=== PATIENT | male | born 1970 | race Caucasian/White ===

== ENCOUNTER 2023-05-23 12:36 | Day surgery (SDC) | payer BC ==
[~2023-05-23] VITALS: Ht 175.3 cm; Wt 79.5 kg
[~2023-05-23 12:36] MED LIST: COQ-10100 MG PO; FAMOTIDINE10 MG PO; FISH OIL 1,0001 EAC6 PO; HYDROCHLOROTHIA25 MG PO; LOSARTAN POTASS25 MG PO; MAGNESIUM100 MG PO; OMEPRAZOLE20 MG PO; ONE-DAILY MULT1 EAC1 PO; ROSUVASTATIN CA20 MG PO; VAZALORE81 MG PO
[2023-05-23 12:52] VITALS: BP 155/81
--- NOTE | 2023-05-23 15:29 | NUR ---
05/23/23 1529 Sheets,Mechelle 1518 PT ARRIVED TO PACU ON 2L VIA NC, PT WAKES EASILY AND PLAN OF CARE DISCUSSED. PT EASILY FALLS BACK SLEEP AND RESP EVEN AND UNLABORED. C02 35.
[2023-05-23 15:53] VITALS: BP 115/80
--- NOTE | 2023-05-26 11:30 | OR ---
[facility] [place] [facility] [address] [place], [place] [address] Signed DATE OF OPERATION: 05/23/2023 SURGEON: Leighann Baptiste MD PREOPERATIVE DIAGNOSES: 1. Clinical gastroesophageal reflux history. 2. Colon screening. POSTOPERATIVE DIAGNOSES: 1. Normal-appearing upper endoscopy. 2. Sigmoid diverticulosis and polyps x3. PROCEDURES: 1. Esophagogastroduodenoscopy with biopsy. 2. Total colonoscopy to cecum with cold snare polypectomy x1, cold morcellation polypectomy x1, and hot snare polypectomy x1. ANESTHESIA: Intravenous sedation, fentanyl 150 mcg and Versed 9 mg (total). 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 He is a patient of Dr. Kenyon Stevenson. He has long-standing gastroesophageal reflux symptoms and underwent evaluation by Ear, Nose, and Throat surgeon, Dr. Cristina, where he was considered to have possible reflux related issues. He has had an upper GI and CT scan in the distant past. He notes that he has a "click" when he swallows in the region of the hypopharynx, this has been rather mysterious. He has taken omeprazole with good benefit regarding his reflux symptoms. He notes off his medications. He has prompt reflux recurrence. He has no family history of esophageal cancer. He is admitted at this time to undergo upper endoscopy on that basis. Additionally, he is here for screening colonoscopy, having never undergone colonoscopy in the past. He does have family history of colon cancer in a paternal grandfather. He has no symptoms of bleeding, diarrhea, or constipation. FINDINGS: Upper endoscopy showed a normal esophagus, stomach, and duodenum. There was really no hiatal hernia that I could tell. There were no abnormalities in the proximal hypopharynx that would account for his "click" with swallowing. Electronically Signed By: LEIGHANN BAPTISTE MD 05/26/23 1130 PATIENT NAME: TABITHA LOUIS OPERATIVE REPORT DATE OF : 72 REPORT #: [id number] PHYSICIAN: LEIGHANN BAPTISTE MD PCP: KENYON STEVENSON MD REPORT IS CONFIDENTIAL AND NOT TO BE RELEASED WITHOUT AUTHORIZATION [facility] [place] [facility] [address] [place], [place] [address] Signed On colonoscopy, the prep was excellent. Complete colonoscopy was undertaken to the cecum. There were three polyps in total, all excised completely. The largest pedunculated and in the sigmoid. He additionally had diverticulosis of the sigmoid. DESCRIPTION OF PROCEDURE: The patient was brought to the endoscopy suite given topical lidocaine hypopharyngeal anesthesia, placed in lateral decubitus position. He was given intravenous sedation to a point of slurred speech and nystagmus. A bite block was placed. An Olympus video upper endoscope was passed into the hypopharynx. Careful inspection of vocal cords showed them to be normal. Scope was advanced to the esophagus without problem. The esophagus throughout its length was normal. Scope was passed to the stomach, which was insufflated with air. Rugal folds were normal. The antrum was normal as was the pylorus. The scope was passed through into the duodenum, which was normal. Biopsies were taken of the duodenum to assess for celiac disease. The scope was withdrawn. A biopsy was then taken of the antrum for both CLIFFORD and pathologic testing. Retroflexed view was undertaken showing a reasonably good flap valve. There is certainly no sign of large hiatal hernia. The scope was straightened, withdrawn and biopsies then taken from the distal esophageal mucosa. There was no evidence of Vasquez epithelium stricture, neoplasm, or even inflammation that I could see. Further withdrawal allowed for biopsies in mid esophagus, so it appeared normal. Further withdrawal showed no other findings of the proximal esophagus or hypopharynx. Plans were then made for colonoscopy. Additional sedation was given. Digital rectal examination was found to be normal including normal prostate. An Olympus video colonoscope was passed into the rectum and manipulated throughout the colon noting diverticula of the sigmoid relatively large pedunculated polyp of the sigmoid. The scope was passed beyond this ultimately to the cecum. Ileocecal valve and appendiceal orifice were noted. In the proximal ascending colon and juxtaposed to the cecum was a sessile polyp, this was excised with cold morcellation technique. The scope was further withdrawn and no other findings were noted until the proximal left colon, where a small adenomatous polyp was noted, this was excised with cold snare technique. Further withdrawal, confirmed diverticula of the left colon and sigmoid, and in the mid sigmoid there was a large pedunculated polyp, this was excised with hot snare polypectomy technique without problem, ultimately required a Ye net to grasp and withdrawal fully. Reinspection of the colon was undertaken showing no sign of bleeding or other problems. The rectum was normal including retroflexed view. The scope was removed and the patient was taken to the recovery room in good condition. CONCLUDING DIAGNOSIS: Clinical gastroesophageal reflux symptoms improved and maintained a PPI medication. I would have him continue these for the time being, pending biopsies. Electronically Signed By: LEIGHANN BAPTISTE MD 05/26/23 1130 PATIENT NAME: TABITHA LOUIS OPERATIVE REPORT DATE OF : 72 REPORT #: [id number] PHYSICIAN: LEIGHANN BAPTISTE MD PCP: KENYON STEVENSON MD REPORT IS CONFIDENTIAL AND NOT TO BE RELEASED WITHOUT AUTHORIZATION [facility] [address] [place] [address] Signed As regard to colon, we recommend repeat colonoscopy in three years based on polyps found and certainly no later than five years based on family history and polyps. We would recommend high-fiber diet given his diverticulosis. He will return to see me in the office in 4-6 weeks. We will review these findings and pathologic reports. Leighann Baptiste MD /DYLONL /[id number] cc: Kenyon Stevenson MD Copies: KENYON STEVENSON DMD ~ Electronically Signed By: LEIGHANN BAPTISTE MD 05/26/23 1130 PATIENT NAME: TABITHA LOUIS OPERATIVE REPORT DATE OF : 72 REPORT #: [id number] PHYSICIAN: LEIGHANN BAPTISTE MD PCP: KENYON STEVENSON MD REPORT IS CONFIDENTIAL AND NOT TO BE RELEASED WITHOUT AUTHORIZATION
--- NOTE | 2023-05-28 17:23 | PATH ---
[facility] [address] [facility] [place], [place] [address] Signed SPECIMEN(S): A DUODENAL BIOPSY SPECIMEN(S): B ANTRUM/ANTRAL BIOPSY SPECIMEN(S): C LOWER ESOPHAGEAL BIOPSY SPECIMEN(S): D MIDDLE ESOPHAGEAL BIOPSY SPECIMEN(S): E DESCENDING/LEFT COLON POLYP SPECIMEN(S): F ASCENDING/RIGHT COLON POLYP SPECIMEN(S): G SIGMOID POLYP SPECIMEN SOURCE: A. DUODENAL BIOPSY B. ANTRUM/ANTRAL BIOPSY C. LOWER ESOPHAGEAL BIOPSY D. MIDDLE ESOPHAGEAL BIOPSY E. DESCENDING/LEFT COLON POLYP F. ASCENDING/RIGHT COLON POLYP G. SIGMOID POLYP CLINICAL HISTORY: Pre: GERD. Dysphagia. Hx colon CA. Post: Normal EGD. Polyps x3 and diverticulosis. FINAL PATHOLOGIC DIAGNOSIS: A. Duodenal biopsy: - Benign duodenal mucosa, negative for specific diagnostic abnormality. B. Antrum / antral biopsy: - Benign gastric-type mucosa with focal slight chronic inflammation. - Negative for evidence of Helicobacter organisms on routine HE-stained sections. C. Lower esophageal biopsy: - Benign esophageal mucosa, negative for significant increased epithelial eosinophils. - Negative for glandular mucosa. D. Middle esophageal biopsy: - Benign esophageal mucosa, negative for significantly increased epithelial eosinophils. - See comment. E. Descending / left colon polyp: - Tubular adenoma (three fragments). F. Ascending / right colon polyp: - Tubular adenoma (two fragments). G. Sigmoid colon polyp: PATIENT NAME: TABITHA LOUIS [facility]IN[facility] PATHOLOGY DATE OF : 72 REPORT #: [id number] PHYSICIAN: [employer] [facility] PCP: KENYON STEVENSON MD REPORT IS CONFIDENTIAL AND NOT TO BE RELEASED WITHOUT AUTHORIZATION [facility] [address] [place], [place] [address] Signed - Tubular adenoma with focal high grade dysplasia. - The areas of high grade dysplasia are free of the inked polyp stalk margins on these sections. COMMENT: A few scattered epithelial eosinophils are present on specimen D (up to 4-5 per HPF). These are insufficient for the diagnosis of eosinophilic esophagitis. As part of [facility] Quality Improvement Program, this case was reviewed by another member of our pathology staff. JVR:CATALINO:[facility] MICROSCOPIC EXAMINATION: Histologic sections of all submitted blocks are examined by light microscopy. These findings, together with the gross examination, support the pathologic diagnosis. GROSS DESCRIPTION: A. The specimen, labeled and designated "Jone, P, duodenum (NOS) biopsy," is received in formalin and consists of 1 mittal-brown soft tissue fragment measuring 0.4 x 0.5 cm and is submitted entirely in (A1). B. The specimen, labeled and designated "Jone, P, antrum/pylorus stomach biopsy," is received in formalin and consists of 2 mittal-brown soft tissue fragments measuring 0.2 x 0.5 cm in greatest dimension, all specimens are submitted entirely in (B1). C. The specimen, labeled and designated "Jone, P, lower esophagus biopsy," is received in formalin and consists of multiple mittal-white soft tissue fragments measuring 0.3 x 0.6 cm in greatest dimension, all specimens are submitted entirely in (C1). D. The specimen, labeled and designated "Jone, P, mid esophagus biopsy," is received in formalin and consists of 2 mittal-white soft tissue fragments measuring 0.3 x 0.4 cm in greatest dimension, all specimens are submitted entirely in (D1). E. The specimen, labeled and designated "Jone, P, descending/left colon polypectomy," is received in formalin and consists of 2 mittal soft polypoid tissue fragments measuring 0.3 x 0.6 cm in greatest dimension, specimens are submitted entirely in (E1). F. The specimen, labeled and designated "Jone, P, ascending/right colon polypectomy," is received in formalin and consists of 4 mittal soft tissue fragments measuring 0.2 x 0.5 cm in greatest dimension, all specimens are submitted entirely in (F1). PATIENT NAME: TABITHA LOUIS PATHOLOGY DATE OF : 72 REPORT #: [id number] PHYSICIAN: [facility] PCP: KENYON STEVENSON MD REPORT IS CONFIDENTIAL AND NOT TO BE RELEASED WITHOUT AUTHORIZATION [facility] [address] [place], [place] [address] Signed G. The specimen, labeled and designated "Jone, P, colon, sigmoid polyp," is received in formalin and consists of 1 large brown soft polypoid tissue measuring 1.2 x 1.0 x 1.0 cm, the resection margin is inked green, serially sectioned and submitted entirely in (G1). MMA (under the direct supervision of a pathologist) The Gross Description was prepared using a voice recognition system. The report was reviewed for accuracy; however, sound-alike word errors, addition and/or deletions may occur. If there is any question about this report, please contact Client Services. PERFORMING LABORATORY: Technical component was performed by [facility], [address] [place] [address] (CLIA# [id number]). Professional interpretation was performed by [facility] - [facility], [address] [place] [address], [place] [address] (CLIA#: [id number]). Diagnostician: Aneesh Lassiter MD Pathologist Electronically Signed 05/28/2023 Copies: ~ PATIENT NAME: TABITHA LOUIS PATHOLOGY DATE OF : 72 REPORT #: [id number] PHYSICIAN: [employer] [facility] PCP: KENYON STEVENSON MD REPORT IS CONFIDENTIAL AND NOT TO BE RELEASED WITHOUT AUTHORIZATION
== END 2023-05-23 16:03 | disposition home or self-care (01) ==
LOC: OPS 12:36 → DS 12:36 → OPS 13:45 → DS 13:45 → OPS 16:03
PROVIDERS: ATTEND Surgery
PROC: 0DB58ZX Excision of Esophagus, Via Natural or Artificial Opening Endoscopic, Diagnostic (ICD-10-PCS; 2023-05-23)
PROC: 0DBK8ZX Excision of Ascending Colon, Via Natural or Artificial Opening Endoscopic, Diagnostic (ICD-10-PCS; 2023-05-23)
PROC: 0DBN8ZX Excision of Sigmoid Colon, Via Natural or Artificial Opening Endoscopic, Diagnostic (ICD-10-PCS; 2023-05-23)
PROC: 0DBM8ZX Excision of Descending Colon, Via Natural or Artificial Opening Endoscopic, Diagnostic (ICD-10-PCS; 2023-05-23)
PROC: 0DB98ZX Excision of Duodenum, Via Natural or Artificial Opening Endoscopic, Diagnostic (ICD-10-PCS; principal; 2023-05-23 13:45)
PROC: 0DB68ZX Excision of Stomach, Via Natural or Artificial Opening Endoscopic, Diagnostic (ICD-10-PCS; 2023-05-23 13:45)
DX: Z12.11 Encounter for screening for malignant neoplasm of colon (principal); D12.2 Benign neoplasm of ascending colon; D12.4 Benign neoplasm of descending colon; D12.5 Benign neoplasm of sigmoid colon; K57.30 Diverticulosis of large intestine without perforation or abscess without bleeding; K29.50 Unspecified chronic gastritis without bleeding; K21.00 Gastro-esophageal reflux disease with esophagitis, without bleeding; K21.9 Gastro-esophageal reflux disease without esophagitis; G47.33 Obstructive sleep apnea (adult) (pediatric); I10 Essential (primary) hypertension; Z80.0 Family history of malignant neoplasm of digestive organs; Z88.8 Allergy status to other drugs, medicaments and biological substances; Z79.82 Long term (current) use of aspirin; Z79.899 Other long term (current) drug therapy
CPT/HCPCS: 99153; G0500; J2250; J3010; J7121

== ENCOUNTER 2024-07-20 06:25 | Day surgery (SDC) | payer BC ==
[~2024-07-20] VITALS: Ht 175.3 cm; Wt 79.5 kg
[~2024-07-20 06:25] MED LIST changes: +ACID CONTROLLER10 MG PO; +ADULT LOW DOSE81 MG PO; +MIDAZOLAM HCL 5 MG/5 ML VIAL IV PRN; +fentaNYL citrate 100 MCG/2 ML VIAL IV PRN
[2024-07-20 06:36] VITALS: BP 126/72
[2024-07-20] MEDS ORDERED: MIDAZOLAM HCL 5 MG/5 ML VIAL ONE (06:47)
[2024-07-20] MEDS ORDERED: fentaNYL citrate 100 MCG/2 ML VIAL ONE (06:48)
[2024-07-20] MEDS ORDERED: LIDOCAINE HCL 1% 5 ML SDV INJ ONE (07:00)
[2024-07-20] MEDS ORDERED: IBLOOD GLUCOSE TEST STRIP 1 EA TEST VI PRN (07:00)
[2024-07-20] MEDS ORDERED: LACTATED RINGER'S 1,000 ML IV SCH (07:00)
--- NOTE | 2024-07-20 08:32 | NUR ---
07/20/24 0832 Janie Kelly 0813 PT ARRIVED IN PACU AWAKE WITH NO C/O'S. ABD SOFT. 0822 DR AT BEDSIDE. ALL QUESTIONS ANSWERED. 0830 RESTING. REU. PASSING FLATUS.
[2024-07-20 08:44] VITALS: BP 101/76
--- NOTE | 2024-07-20 18:17 | OR ---
[facility] [address] [place], [place] [address] Signed DATE OF OPERATION: 07/20/2024 SURGEON: Leighann Baptiste MD PREOPERATIVE DIAGNOSIS: History of tubular adenomas x3 including tubular adenoma of sigmoid with focal high-grade dysplasia 2022. POSTOPERATIVE DIAGNOSIS: Small adenomatous polyp of ileocecal valve and diverticulosis of sigmoid. PROCEDURE: Total colonoscopy to cecum with cold morcellation polypectomy x1. ANESTHESIA: Intravenous sedation; fentanyl 100 mcg and Versed 4 mg. INDICATION: This 53-year-old white man is a patient of Dr. Kenyon Stevenson and underwent colonoscopy and upper endoscopy by me in May of 2023. At that time, he was found to have three tubular adenomas of the colon, one in the sigmoid, one in the cecum and one in the proximal left colon. The sigmoid polyp did show high-grade dysplasia. A negative margin was noted on the polyp stalk. On the basis of this finding of dysplasia, I have recommended short-term colonoscopy. The risk of bleeding, infection, and perforation were reviewed with him. He understands and wished to proceed. FINDINGS: There is a small tubular adenoma of the ileocecal valve but that resolved. There were diverticula of the sigmoid and left colon, but no sign of recurrent polyp or other abnormality. The prep was excellent. PROCEDURE IN DETAIL: The patient was brought to the endoscopy suite and placed in the lateral decubitus position, given intravenous sedation to the point of slurred speech and nystagmus. Digital rectal examination was normal. Full cardiopulmonary monitoring was maintained. An Olympus video colonoscope was passed in the rectum and manipulated throughout the colon ultimately intubating the cecum itself. The ileocecal valve had a small adenomatous appearing polyp. This was excised with cold morcellation technique. The scope was then withdrawn. Examination throughout undertaken showing only diverticula of the sigmoid and left colon. There was no sign of recurrent polyp of the sigmoid or Electronically Signed By: LEIGHANN BAPTISTE MD 07/20/24 0266 PATIENT NAME: TABITHA LOUIS OPERATIVE REPORT DATE OF : 72 REPORT #: [id number] PHYSICIAN: LEIGHANN BAPTISTE MD PCP: KENYON STEVENSON MD REPORT IS CONFIDENTIAL AND NOT TO BE RELEASED WITHOUT AUTHORIZATION [facility] [address] [place], [place] [address] Signed elsewhere. Retroflexed view of the rectum was normal. The scope was withdrawn and removed. The patient was taken to the recovery room in good condition. CONCLUDING DIAGNOSES: 1. Diverticulosis. 2. Polyp x1. PLAN: Would recommend repeat colonoscopy in 5 to 7 years, sooner if symptoms of course. The patient will return to the ongoing care of Dr. Kenyon Stevenson. MD YESSENIA Patel/MIRA /[id number] cc: Kenyon Stevenson MD Copies: KENYON STEVENSON DMD ~ Electronically Signed By: LEIGHANN BAPTISTE MD 07/20/24 1817 PATIENT NAME: TABITHA LOUIS OPERATIVE REPORT DATE OF : 72 REPORT #: [id number] PHYSICIAN: LEIGHANN BAPTISTE MD PCP: KENYON STEVENSON MD REPORT IS CONFIDENTIAL AND NOT TO BE RELEASED WITHOUT AUTHORIZATION
--- NOTE | 2024-07-22 12:21 | PATH ---
[facility] [address] [place], [place] [address] Signed SPECIMEN(S): A ILEUM, CECUM COLON POLYP SPECIMEN SOURCE: A. ILEUM, CECUM COLON POLYP CLINICAL HISTORY: Pre-op: Family history of colon CA, history of polyps (tubular adenoma). Postop: Polyp "illegible ", diverticulosis FINAL PATHOLOGIC DIAGNOSIS: Ileum, cecum colon polyp: - Tubular adenoma (one fragment). JVR:cml MICROSCOPIC EXAMINATION: Histologic sections of all submitted blocks are examined by light microscopy. These findings, together with the gross examination, support the pathologic diagnosis. GROSS DESCRIPTION: The specimen, labeled and designated "Katie Becerril, ileum, cecum colon polyp," is received in formalin and consists of two mittal soft tissue fragments, ranging from 0.2-0.3 cm. Entirely submitted in (A1). AB (under the direct supervision of a pathologist) The Gross Description was prepared using a voice recognition system. The report was reviewed for accuracy; however, sound-alike word errors, addition and/or deletions may occur. If there is any question about this report, please contact Client Services. PERFORMING LABORATORY: Technical component was performed by [facility], [address] [place] [id number] (CLIA# [id number]). Professional interpretation was performed by [facility], [address] [place] [id number] (CLIA#: [id number]). Diagnostician: Aneesh Lasstier MD Pathologist Electronically Signed 07/22/2024 PATIENT NAME: TABITHA BECERRIL PATHOLOGY DATE OF : 72 REPORT #: [id number] PHYSICIAN: [facility] PCP: KENYON STEVENSON MD REPORT IS CONFIDENTIAL AND NOT TO BE RELEASED WITHOUT AUTHORIZATION [address] [address] Signed Copies: ~ PATIENT NAME: TABITHA BECERRIL PATHOLOGY DATE OF : 72 REPORT #: [id number] PHYSICIAN: [facility] PCP: KENYON STEVENSON MD REPORT IS CONFIDENTIAL AND NOT TO BE RELEASED WITHOUT AUTHORIZATION
== END 2024-07-20 08:50 | disposition home or self-care (01) ==
LOC: OPS 06:25 → DS 06:27 → OPS 07:30
PROVIDERS: ATTEND Surgery
PROC: 0DDC8ZX Extraction of Ileocecal Valve, Via Natural or Artificial Opening Endoscopic, Diagnostic (ICD-10-PCS; principal; 2024-07-20 07:30)
DX: D12.0 Benign neoplasm of cecum (principal); K57.30 Diverticulosis of large intestine without perforation or abscess without bleeding; K21.9 Gastro-esophageal reflux disease without esophagitis; I10 Essential (primary) hypertension; G47.33 Obstructive sleep apnea (adult) (pediatric); L91.8 Other hypertrophic disorders of the skin; Z86.0101 Personal history of adenomatous and serrated colon polyps; Z79.82 Long term (current) use of aspirin; Z79.899 Other long term (current) drug therapy; Z88.8 Allergy status to other drugs, medicaments and biological substances; Z80.0 Family history of malignant neoplasm of digestive organs
CPT/HCPCS: 99153; G0500; J2250; J3010; J7121